=== PATIENT | male | born 1975 | race Caucasian/White ===

== ENCOUNTER 2017-05-11 10:30 | Emergency (ER) | payer OTHER ==
[2017-05-11] MEDS ORDERED: Ibuprofen 600 MG Tab PO ONE (10:54)
--- NOTE | 2017-05-11 11:37 | EDM.PDOC ---
ED HPI GENERAL MEDICAL PROBLEM - General Chief Complaint: Lower Extremity Injury/Pain Stated Complaint: LEFT FOOT Time Seen by Provider: 05/11/17 10:30 Source of Information: Reports: Patient, Other (coworker) History Limitations: Reports: No Limitations, Physical Impairment - History of Present Illness INITIAL COMMENTS - FREE TEXT/NARRATIVE: 41 y.o.w.m came to the ed with his coworker after a metal fell onto his left foot. Pt had boots on which had toe protecting metal in place. No other acute medical issues. Onset Date: 05/11/17 Onset Time: 09:00 Duration: Minutes:, Intermittent Location: Reports: Lower Extremity, Left Quality: Reports: Dull, Throbbing Severity: Moderate Improves with: Reports: Cold Therapy, Immobilization, Rest Worsens with: Reports: Movement Context: Reports: Trauma left foot Pain Score (Numeric/FACES): 8 - Related Data Allergies Allergy/AdvReac Type Severity Reaction Status Date / Time Penicillins Allergy Cannot Verified 05/11/17 11:35 Remember Home Meds: Home Meds Ibuprofen [Motrin] 600 mg PO TID PRN #30 tab 05/11/17 [Rx] metFORMIN [Glucophage] 1,000 mg PO BIDMEALS 05/11/17 [History] Review of Systems - Review of Systems Review Of Systems: See Below Constitutional: Reports: No Symptoms Eyes: Reports: No Symptoms Ears: Reports: No Symptoms Nose: Reports: No Symptoms Mouth/Throat: Reports: No Symptoms Respiratory: Reports: No Symptoms Cardiovascular: Reports: No Symptoms GI/Abdominal: Reports: No Symptoms Genitourinary: Reports: No Symptoms Musculoskeletal: Reports: Foot Pain Skin: Reports: No Symptoms Neurological: Reports: No Symptoms Psychiatric: Reports: No Symptoms ED EXAM, GENERAL - Physical Exam Exam: See Below Exam Limited By: Physical Impairment General Appearance: Alert, WD/WN, Mild Distress Eye Exam: Bilateral Eye: Normal Inspection Ears: Normal External Exam Ear Exam: Bilateral Ear: Auricle Normal Nose: Normal Inspection, Normal Mucosa Throat/Mouth: Normal Inspection Head: Atraumatic, Normocephalic Neck: Normal Inspection, Supple, Non-Tender, Full Range of Motion Respiratory/Chest: No Respiratory Distress, Lungs Clear, Normal Breath Sounds Cardiovascular: Normal Peripheral Pulses, Regular Rate, Rhythm, No Edema, No Gallop, No JVD, No Murmur, No Rub Peripheral Pulses: 1+: Femoral (L), Femoral (R) GI/Abdominal: Normal Bowel Sounds, Soft, Non-Tender, No Organomegaly (Male) Exam: Deferred Rectal (Males) Exam: Deferred Back Exam: Normal Inspection, Full Range of Motion Extremities: Normal Inspection, Normal Range of Motion, No Pedal Edema, Normal Capillary Refill, Other (tender/swollen left forefoot) Neurological: Alert, Oriented, CN II-XII Intact, Normal Cognition Psychiatric: Normal Affect, Normal Mood Skin Exam: Warm, Dry, Intact, Normal Color, No Rash Lymphatic: No Adenopathy Course - Vital Signs Text/Narrative:: 41 y.o.w.m came to the ed with his coworker after a metal fell onto his left foot. Pt had boots on which had toe protecting metal in place. No other acute medical issues. PE: Tender left forefoot, No neurological deficit. Imaging: Left forefoot: NAD Impression: Left forefoot sprain Tx: Motrin, Ice, elevation Reexam: Improved Plan: D/c with instructions Last Recorded V/S: Last Vital Signs Temp 36.8 C 05/11/17 10:40 Pulse 74 05/11/17 10:40 Resp 16 05/11/17 10:40 BP 130/83 05/11/17 10:40 Pulse Ox 99 05/11/17 10:40 - Orders/Labs/Meds Orders: Active Orders 24 hr Category Date Time Status Foot Comp Min 3V Lt [CR] Stat Exams 05/11/17 11:01 Taken Ice Therapy [OM.PC] Routine Oth 05/11/17 10:54 Ordered Meds: Medications Discontinued Medications Generic Name Dose Route Start Last Admin Trade Name Freq PRN Reason Stop Dose Admin Ibuprofen 600 mg 05/11/17 10:54 05/11/17 11:01 Motrin PO 05/11/17 10:55 600 mg ONETIME ONE Administration Departure - Departure Time of Disposition: 11:32 Disposition: Home, Self-Care 01 Condition: Good Clinical Impression: Sprain of left foot Qualifiers: Encounter type: initial encounter Qualified Code(s): S93.602A - Unspecified sprain of left foot, initial encounter - Discharge Information Prescriptions: Ibuprofen [Motrin] 600 mg PO TID PRN #30 tab PRN Reason: moderate PAIN Instructions: Foot Sprain Forms: ED Department Discharge Additional Instructions: Please follow up with your PMD, rest, ice and elevation, Motrin for pain, please come back if your symptoms get worse acutely worse. - My Orders Last 24 Hours: My Active Orders 05/11/17 10:54 Ice Therapy [OM.PC] Routine 05/11/17 11:01 Foot Comp Min 3V Lt [CR] Stat - Assessment/Plan Last 24 Hours: My Active Orders 05/11/17 10:54 Ice Therapy [OM.PC] Routine 05/11/17 11:01 Foot Comp Min 3V Lt [CR] Stat
[2017-05-11 12:25] VITALS: BP 154/81
--- NOTE | 2017-05-11 12:28 | CR ---
INDICATION: Dropped heavy object on big toe. LEFT FOOT: Three views of the left foot revealed no definite displaced fracture site or dislocation. There are some areas of linear lucency overlying the distal aspect - shaft and metaphysis - of the proximal phalanx of the great toe, which likely represent overlying soft tissue injury. If an occult fracture site is suspected clinically, a follow-up study in 10-14 days is strongly recommended since at least one of these areas of linear lucency could represent a hairline fracture site. [facility]
== END 2017-05-11 11:50 | disposition home or self-care (01) ==
LOC: FB.ED 10:30
DX: S93.602A Unspecified sprain of left foot, initial encounter (principal); Z79.891 Long term (current) use of opiate analgesic; Z79.84 Long term (current) use of oral hypoglycemic drugs; W20.8XXA Other cause of strike by thrown, projected or falling object, initial encounter; Y92.69 Other specified industrial and construction area as the place of occurrence of the external cause; Y99.0 Civilian activity done for income or pay
CPT/HCPCS: 73630; 99283; A9270